=== PATIENT | female | born 1970 | race Caucasian/White ===

== ENCOUNTER → 2018-06-12 | Outpatient (CLI) | payer BC ==
[2013-12-27 10:41] VITALS: BMI 21.8
[~2018-06-12] MED LIST: ACET-3017 PO; FISH12002 PO; IBU800 PO; IBUP100T49 PO; IBUP800T37 PO; IRON1TAB55 PO; LEVO1IUD2 VG; NITR-105 PO; OXYC-373 PO; PER PO; PNV1TABL92 PO; ZITHROMAX PO
[2018-06-12 08:12] LABS: PLATELET COUNT, AUTOMATED 205 K/uL (150-450)
== END ==
LOC: LAB 07:53
PROVIDERS: ATTEND Obstetrics & Gynecology
DX: R53.83 Other fatigue (principal); R23.2 Flushing; E78.5 Hyperlipidemia, unspecified
CPT/HCPCS: 36415; 82040; 82247; 82310; 82374; 82435; 82465; 82565; 82607; 82947; 83001; 83718; 84075; 84132; 84155; 84295; 84436; 84443; 84450; 84460; 84478; 84520; 85025